=== PATIENT | male | born 1975 | race Caucasian/White ===

== ENCOUNTER 2016-07-02 13:11 | Emergency (ER) | payer OTHER ==
[2016-07-02] MEDS ORDERED: ONDANSETRON 4 MG ODT TAB ONE (14:01)
[2016-07-02 15:30] LABS: SPECIFIC GRAVITY 1.015 (1.001-1.030); URINE BILIRUBIN NEGATIVE (NEGATIVE); URINE BLOOD NEGATIVE (NEGATIVE); URINE GLUCOSE (UA) NEGATIVE (NEGATIVE); URINE LEUKOCYTE ESTERASE 2+ (NEGATIVE); URINE NITRITE NEGATIVE (NEGATIVE); URINE PROTEIN NEGATIVE (NEGATIVE); URINE UROBILINOGEN NORMAL (0-1 mg/dl)
[2016-07-02 15:33] LABS: URINE APPEARANCE CLEAR; URINE COLOR YELLOW
[2016-07-02 15:56] LABS: URINE BACTERIA RARE; URINE EPITHELIAL CELLS 0-1 /hpf
[2016-07-02] MEDS ORDERED: CEPHALEXIN 500 MG CAPSULE ONE (16:07)
== END 2016-07-02 16:12 | disposition home or self-care (01) ==
LOC: ED 13:11
DX: N30.90 Cystitis, unspecified without hematuria (principal); E86.0 Dehydration; J45.909 Unspecified asthma, uncomplicated; Q05.9 Spina bifida, unspecified; Z79.899 Other long term (current) drug therapy; Z88.1 Allergy status to other antibiotic agents
CPT/HCPCS: 81001; 99283 ×2; A9270 ×2